=== PATIENT | female | born 1985 | race Caucasian/White ===

== ENCOUNTER → 2016-05-22 | Outpatient (CLI) | payer BC ==
--- NOTE | 2016-05-22 15:35 | MAMMOGRAPHY REPORT ---
UNILATERAL LEFT DIGITAL DIAGNOSTIC MAMMOGRAM TOMOSYNTHESIS AND TARGETED LEFT ULTRASOUND: 05/22/2016 CLINICAL HISTORY: The patient reports a palpable lump in her left breast for approximately one week. 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 S he has a family history of breast cancer in her mother. TECHNIQUE: Breast tomosynthesis in addition to standard 2D mammography was performed. Left CC and MLO 2-D and tomosynthesis images were obtained. COMPARISON: No prior exams were available for comparison. BREAST COMPOSITION: The tissue of the left breast is heterogeneously dense, which may obscure small masses. FINDINGS: A triangle marker andrade the site of the palpable lump in the left upper outer quadrant an teriorly. No suspicious masses or other suspicious findings are seen in this region mammographicall y. There is an oval circumscribed 8 mm mass seen within the left lower inner quadrant. The remaind er of the left breast demonstrates no suspicious masses, calcifications, or areas of architectural d istortion. Targeted ultrasound was performed of the area of the palpable lump pointed out by the patient, in th e left breast at approximately 1 to 2:00 subareolar region. At the site of the palpable lump there is an ill-defined hypoechoic shadowing region which measures approximately 2.5 x 1.5 x 2.4 cm. Whil e this may potentially represent normal fibroglandular tissue or stromal fibrosis, it is indetermina te and ultrasound-guided biopsy is recommended for further evaluation. In the left breast at 2:00 periareolar region, there is an oval anechoic circumscribed 6 x 3 x 5 mm mass, consistent with a benign simple cyst. In the left breast at 8:00, 4 cm from the nipple, there is an oval anechoic circumscribed mass with a thin internal septation, which measures 6 x 3 x 6 mm and is consistent with a benign cyst. In the left breast at 9:00, 5 cm from the nipple, there is an oval anechoic benign simple cyst which measures 5 x 6 mm. The left 9:00 breast mass corresponds wi th the circumscribed mammographic mass. IMPRESSION: ACR BI-RADS CATEGORY 4: SUSPICIOUS, TARGETED ULTRASOUND ACR BI-RADS CATEGORY 4: SUSPICI OUS 1. Hypoechoic 2.4 cm region at the site of the palpable lump in the left upper outer quadrant subar eolar region. While this could represent dense fibroglandular tissue or stromal fibrosis, it is ind eterminate and ultrasound-guided core needle biopsy is recommended for further evaluation. 2. Small benign cysts seen within the left breast on ultrasound. A phone call was made to the physician's office to confirm faxed results were received. The patient has been verbally notified of the results. She tentatively scheduled the biopsy before leaving the department. Approximately 10% of breast cancers are not detected with mammography. A negative mammographic repor t should not delay biopsy if a clinically suggestive mass is present. Suzette Quinones M.D. ah/:05/22/2016 14:55:33 Senior Stock Plan Administrator: Mehnaz CASTELLANOS([place])(M), [facility] letter sent: Abnormal 4/5 BI-RADS Code: ACR BI-RADS Category 4: Suspicious Ultrasound BI-RADS: ACR BI-RADS Category 4: Suspic ious
== END | disposition home or self-care (01) ==
LOC: C.MAMM 13:49
PROVIDERS: ATTEND Obstetrics & Gynecology
DX: N63 Unspecified lump in breast (principal); N60.02 Solitary cyst of left breast; Z80.3 Family history of malignant neoplasm of breast

== ENCOUNTER → 2016-05-28 | Outpatient (CLI) | payer BC ==
--- NOTE | 2016-05-28 10:34 | Discharge Instructions ---
Discharge Instructions Procedure Procedure Date: May 28, 2016. Reason for visit: Left Mass. Discharge Discharge Date: May 28, 2016. Discharge Diagnosis: post left breast ultrasound guided core biopsy Instructions Activity Recommendations: Additional Limitations (see below) Return to School/Work: no limitations Recommended Home Diet: No Limitations Provider Instructions: ACTIVITY RECOMMENDATIONS: * No lifting, pushing, pulling or exercising the affected side for three days. RETURN TO SCHOOL/WORK: * You may return to work/school after the procedure, but do not perform any strenuous activities for 24 to 48 hours. MEDICATIONS: * Tylenol (two 325 mg) every four to six hours if needed for mild pain (if not allergic to Tylenol). DIET: * Resume previous diet. SPECIAL CARE INSTRUCTIONS: * Keep biopsy site dry for 24 hours. May shower after 24 hours, but do not soak (bathe) incision. * May remove Tegaderm (plastic patch) tomorrow AFTER showering. * Leave the steri-strips on for one week. Allow the steri-strips to fall off by themselves. If not off after one week, you may remove them. You may place a Bandaid crosswise over the strips, if desired. * Apply ice 10 minutes on and 10 minutes off as needed. * Wear a bra at bedtime to sleep more comfortably for 2-3 days. * Your referring physician should have the results after approximately 5 to 7 business days. * Call for unusual bleeding, fever, drainage, etc or if you have any questions call [phone] during normal business hours or after hours call Dr Box, . FOLLOW UP VISIT: Follow-up with Referring Physician as scheduled. Will Clayton Recommendations: Call your doctor if: * Temperature above 101 degrees * Pain not relieved by pain medicine ordered * There is increased drainage or redness from any incision * You have any unanswered questions or concerns. Your Doctors Instructions noted above were prepared by provider Trinity Box. Patient Signature Section: Patient Instructions Signature Page Court Hernandez Patient (or Guardian) Signature/Date: I have read and understand the instructions given to me by my caregivers. Caregiver/RN/Doctor Signature/Date: The above-named patient and/or guardian has received patient instructions on this date. + Original Patient Signature Page (only) stays with chart. Please make copy for patient.
--- NOTE | 2016-05-28 14:09 | MAMMOGRAPHY REPORT ---
UNILATERAL LEFT DIGITAL DIAGNOSTIC MAMMOGRAM TOMOSYNTHESIS: 05/28/2016 CLINICAL HISTORY: Status post ultrasound guided core biopsy of an ill-defined hypoechoic shadowing a lori in the 2:00 retroareolar left breast. Please refer to the report from left breast ultrasound guided core biopsy performed at the same time for full detail. IMPRESSION: POST PROCEDURE IMAGING FOR MARKER PLACEMENT Please refer to the report from left breast ultrasound guided core biopsy performed at the same time for full detail. Approximately 10% of breast cancers are not detected with mammography. A negative mammographic repor t should not delay biopsy if a clinically suggestive mass is present. Trinity Box M.D. ay/:05/28/2016 10:36:36 Faucets Assembler: Janet CASTELLANOS(R)(M), [facility] BI-RADS Code: Post Procedure Imaging For Marker Placement
--- NOTE | 2016-05-28 17:07 | MAMMOGRAPHY REPORT ---
ULTRASOUND GUIDED BIOPSY LEFT BREAST: 05/28/2016 CLINICAL HISTORY: Ill-defined hypoechoic shadowing area in the 2:00 subareolar left breast. Patient presents for ultrasound-guided core biopsy. She has a strong family history of breast cancer. COMPARISON: Comparison is made to exams dated: 05/22/2016 mammogram, 05/22/2016 ultrasound, and 2016 mammogram - [facility]. PATIENT CONSENT: The procedure, risks and benefits were discussed with the patient and informed writ ten consent was obtained. Specific risks to this procedure include: bleeding, infection, puncture of adjacent structure, nontarget biopsy, sampling error and medication reaction. PROCEDURE DESCRIPTION: A time out was performed and the left breast was agreed as the site of biopsy . The skin was prepped and draped in the usual sterile fashion. The ill-defined hypoechoic shadowing area in the 2:00 subareolar left breast was identified and targeted for biopsy. Subcutaneous and i ntraparenchymal 1% buffered lidocaine was administered as local anesthesia. A skin incision was made . Through the incision, 3 samples were taken with a 12 gauge Celero biopsy device. A metallic marke r was placed at the biopsy site. Hemostasis was achieved after manual compression. The patient alise ated the procedure well and there was no immediate complication. The samples were sent to the patho logy department in an appropriately labeled container. Post procedure left CC and ML tomosynthesis images and reconstructed C-views were obtained. There i s a new ribbon-shaped metallic biopsy marker and no significant hematoma in the 2:00 subareolar left breast, at the site of the biopsied ill-defined hypoechoic shadowing area seen on ultrasound. IMPRESSION: ULTRASOUND GUIDED BIOPSY Status post ultrasound guided core biopsy of an ill-defined hypoechoic shadowing area in the 2:00 rogers bareolar left breast, with biopsy marker placed at the site. The patient will receive notification of the biopsy results from her referring physician. Trinity Box M.D. ay/:05/28/2016 14:43:55 Taxation Inspector: Janet GRIJALVA)([place]), [facility]
== END | disposition home or self-care (01) ==
LOC: C.MAMM 09:28
PROVIDERS: ATTEND Obstetrics & Gynecology
DX: N60.32 Fibrosclerosis of left breast (principal)

== ENCOUNTER → 2016-10-10 | Outpatient (CLI) | payer BC | END | disposition home or self-care (01) | LOC: C.PAPS 12:54 | PROVIDERS: ATTEND Obstetrics & Gynecology | DX: Z01.419 Encounter for gynecological examination (general) (routine) without abnormal findings (principal) ==